=== PATIENT | male | born 1980 | race Caucasian/White ===

== ENCOUNTER 2020-04-22 08:19 | Emergency (ER) | payer OTHER, SELFPAY ==
[2020-04-22 08:37] VITALS: BP 126/90; PULSE 106; RESP 16; TEMP 36.8; O2SAT 96
--- NOTE | 2020-04-22 08:51 | ED.NAVMDI ---
HPI - Nausea/Vomiting/Diarrhea General Chief complaint: Nausea/Vomiting/Diarrhea Stated complaint: Stomach Pain Time Seen by Provider: 04/22/20 08:37 Source: patient and RN notes reviewed Mode of arrival: ambulatory Limitations: no limitations History of Present Illness HPI Narrative: Patient presents today complaining of watery diarrhea, chills, lower abdominal cramping, nasal congestion since yesterday. Patient states he has had at least 6 diarrhea stools since last night. Denies fever, sweats, rhinorrhea, cough, sore throat, headache, loss of taste or smell. Eating and drinking normally. Denies sick exposures. He has tried no [id number] interventions prior to arrival. States he feels like he has the stomach flu. MD elicited complaint: diarrhea Related Data Allergies Allergy/AdvReac Type Severity Reaction Status Date / Time No Known Allergies Allergy Unverified 11/29/19 15:53 Review of Systems Review of Systems: Narrative: CONSTITUTIONAL: Denies body aches, fever, or sweats. + Chills EYES: Denies visual changes, redness, or discharge. ENT: Denies rhinorrhea, sore throat, or otalgia. + Congestion CARDIOVASCULAR: Denies chest pain, palpitations, or edema. RESPIRATORY: Denies cough or dyspnea. GASTROINTESTINAL: Denies abdominal pain, nausea, vomiting. + Lower abdominal cramping, diarrhea GENITOURINARY: Denies dysuria or hematuria. SKIN: Denies rash, itching, or wounds. MUSCULOSKELETAL: Denies back pain, joint pain, or myalgia. NEUROLOGIC: Denies headache, numbness, tingling, or weakness. PSYCH: Denies depression or anxiety. PMFSH Past Medical History Medical History Mixed hyperlipidemia Social History Social History Smoking status: Never smoker Alcohol intake: current Drinks per week: 20 Substance use: never Comments At time of signature, I have reviewed and agree with nursing past medical, surgical, social and family history unless otherwise noted. Please see nursing chart for further information. There is no relevant family history pertinent to the presenting complaint Exam Narrative: Exam Narrative: GENERAL: Well-appearing, well-nourished, and in no acute distress. HEAD: Normocephalic, atraumatic. EYES: EOMI. No redness or drainage. Conjunctivae normal. ENT: Mucous membranes pink and moist. Nares clear. No rhinorrhea. TMs normal bilaterally. Throat normal. Uvula midline. NECK: Normal AROM. Supple. No lymphadenopathy. CHEST: No respiratory distress. Clear to auscultation. HEART: Regular rate and rhythm. No murmur appreciated. Normal peripheral pulses. ABDOMEN: Soft, nontender, nondistended, normal active bowel sounds. MUSCULOSKELETAL: No bony tenderness. EXTREMITIES: Normal range of motion. No edema. SKIN: Warm, dry, no rash. Capillary refill normal. Normal skin turgor. NEURO: No focal deficits. Alert and oriented x3. Gait steady. PSYCH: Normal affect. No signs of depression or anxiety. Course Course Emergency Course: Due to recent exposure and symptoms, patient may have a possible COVID-19 infection. Signs and symptoms discussed with patient. Patient educated to self-isolate in a room in his/her home away from others they live with. Use mask if available. Patient was advised not to leave house for any reason ? Self-treatment discussed including Tylenol for fever, pain, or myalgia, and cough cold medications for symptoms. Patient to check temperature daily and monitor for symptoms of respiratory distress. Patient should check in daily with primary care office/system via phone/virtual platform ? Nature of the disease to cause severe respiratory distress discussed with the patient. If emergent care is needed, instructed to notify EMS or primary care office/system that he/she may have COVID-19 to allow for proper preparation of PPE and isolation measures
== END 2020-04-22 09:25 | disposition home or self-care (01) ==
PROVIDERS: Emergency Provider Nurse Practitioner; PCP Family Medicine
DX: B34.9 Viral infection, unspecified (principal); Z20.822 Contact with and (suspected) exposure to COVID-19; E78.2 Mixed hyperlipidemia; I10 Essential (primary) hypertension
CPT/HCPCS: 87426; 99213; C9803; G0463

== ENCOUNTER 2022-09-23 00:30 | Emergency (ER) | payer OTHER, SELFPAY ==
--- NOTE | ~2022-09-23 | CT_ITS ---
CT of the Abdomen and Pelvis: Indication: Abdominal pain Technique: 2.5 mm axial scans were obtained through the abdomen and pelvis following intravenous adm inistration of 100 cc of Omnipaque 350. Dose reduction technique was used on this scan by utilizing a utomated exposure control and iterative reconstruction technique. The dose-length product (DLP) was 1 267.98 mGy-cm. Findings: Scans through the lung bases are unremarkable. There is diffuse fatty infiltration of the liver. There is a 4.4 x 4.5 cm mass in right hepatic lobe with irregular peripheral enhancement (axial image 33). The spleen, pancreas, gallbladder, adrenals a nd kidneys are within normal limits. No evidence of aortic aneurysm. No lymphadenopathy. No bowel obstruction or bowel wall thickening. There is no evidence to suggest acute appendicitis. Images through the pelvis were performed. Urinary bladder unremarkable. Prostate gland and seminal ve sicles are unremarkable. No ascites. Impression: 4.5 x 4.4 cm right hepatic lobe mass. This likely represents hemangioma, though this exam is not defi nitive given the extent of enhancement during the phase imaging. Recommend follow-up pre and postcont rast hepatic MR to more definitively confirm hemangioma. Background diffuse fatty infiltration of the liver. Reviewed, dictated and finalized at location . Impression: 4.5 x 4.4 cm right hepatic lobe mass. This likely represents hemangioma, though this exam is not definitive given the extent of enhancement during the phase i maging. Recommend follow-up pre and postcontrast hepatic MR to more definitivel y confirm hemangioma. Background diffuse fatty infiltration of the liver.
[2022-09-23 00:33] VITALS: PULSE 102; RESP 18; TEMP 36.6; O2SAT 99
[2022-09-23 00:58] LABS: Basophils Absolute Auto 0.1 K/mm3 (0.0-0.1); Basophils Percent Auto 0.6 % (0.2-1.2); Eosinophils Absolute Auto 0.1 K/mm3 (0-0.3); Hematocrit 45.2 % (42.0-52.0); Hemoglobin 15.4 g/dL (14.0-18.0); Immature Granulocyte Absolute 0.03 K/mm3 (0.00-0.031); Immature Granulocyte Percent A 0.3 % (0-0.5); Lymphocytes Absolute Auto 2.74 K/mm3 (0.9-3.2); Mean Corpuscular HGB Conc 34.1 g/dl (32-36); Mean Corpuscular Hemoglobin 28.4 pg (26-34); Mean Corpuscular Volume 83.2 fl (80-100); Mean Platelet Volume 9.5 fl (7.4-10.4); Monocytes Absolute Auto 1.2 K/mm3 (0.1-0.6); Monocytes Percent Auto 11.6 % (2.6-8.5); Neutrophils Absolute Auto 6.4 K/mm3 (1.3-6.7); Neutrophils Percent Auto 60.5 % (45.5-73.1); Platelet Count Result 337 k/mm3 (150-375); Red Blood Count 5.43 M/mm3 (4.6-6.20); Red Cell Distribution Width 13.4 % (11.5-14.5); White Blood Count 10.5 K/mm3 (4.5-10.0)
[2022-09-23 01:17] LABS: Appearance Urine Clear (Clear); Bacteria Urine None Seen /hpf; Bilirubin Urine Negative (Negative); Blood Urine Trace (Negative); Color Urine Yellow (Yellow); Glucose Urine UA Negative (Negative); Ketones Urine Negative (Negative); Leukocyte Esterase Ur Negative LEU/UL (Negative); Nitrate Urine Negative (Negative); Non Pathogenic Casts 0-2; Protein Urine Negative (Negative); RBC Urine 0-2 /hpf (0-2); Specific Grav Ur 1.023 (1.001-1.035); Squamous Epithelial Cell Urine None seen /hpf (Few); Urobilinogen Urine 0.2 mg/dL (<2.0); WBC Urine 0-5 /hpf; pH Urine 5.5 (5.0-9.0)
[2022-09-23 01:25] LABS: Add Urine Microscopic? YES
--- NOTE | 2022-09-23 01:55 | ED.ABDPAIN ---
HPI - Abdominal Pain General Chief Complaint: Abdominal Pain <KARON Cam Last Filed: 09/23/22 03:44> Stated Complaint: abd pain <KARON Cam Last Filed: 09/23/22 03:44> Time Seen by Provider: 09/23/22 01:01 <KARON Cam Last Filed: 09/23/22 03:44> Source: patient <KARON Cam Last Filed: 09/23/22 03:44> Mode of arrival: ambulatory <KARON Cam Last Filed: 09/23/22 03:44> Limitations: no limitations <KARON Cam Last Filed: 09/23/22 03:44> History of Present Illness HPI narrative: Patient is 42-year-old male who presents to the ED with report of right upper quadrant abdominal pain. Patient reports the pain began after eating lunch at [facility] on Tuesday. Pain has been constant since then. He has not taken anything for pain. No significant radiation of pain. Patient denies ever really having pain like this before. Denies any nausea, vomiting, constipation. He did have an episode of diarrhea earlier this week. Denies rectal bleeding or melena. Denies urinary symptoms. Denies fevers. <KARON Cam Last Filed: 09/23/22 03:44> Related Data Allergies/Adverse Reactions: Allergies Allergy/AdvReac Type Severity Reaction Status Date / Time No Known Allergies Allergy Unverified 09/20/22 16:22 <KARON Cam Last Filed: 09/23/22 03:44> Review of Systems Review of Systems: CONSTITUTIONAL: Denies fever, chills, or sweats. CARDIOVASCULAR: Denies chest pain. RESPIRATORY: Denies dyspnea. GASTROINTESTINAL: See HPI. GENITOURINARY: Denies dysuria or hematuria. SKIN: Denies rash or itching. MUSCULOSKELETAL: Denies back pain, joint pain, or myalgia. <KARON Cam Last Filed: 09/23/22 03:44> All systems reviewed & are unremarkable except as noted in HPI and below <Sariah Caraballo PA-C - Last Filed: 09/23/22 03:44> [facility] Past Medical History Medical History: Medical History Mixed hyperlipidemia <Sariah Caraballo PA-C - Last Filed: 09/23/22 03:44> Social History Social History: Social History Smoking status: Never smoker Alcohol intake: current Drinks per week: 20 Substance use: never Living arrangements: with family Occupation/Education: occupation Gender identity (if verbalized by the patient): Male Sexual Orientation (if Verbalized by the Patient): Straight or Heterosexual <Sariah Caraballo PA-C - Last Filed: 09/23/22 03:44> Exam Narrative: GENERAL: Well appearing, obese with BMI of 36.6, non-toxic, in no acute distress. HEAD: Normocephalic, atraumatic. NECK: Supple. No adenopathy, no masses. RESPIRATORY: Airway patent, respirations nonlabored. Clear to auscultation bilaterally, no rales, rhonchi, wheezing. CARDIOVASCULAR: Regular rate and rhythm without murmurs, rubs, or gallops. Radial pulses 2+ and equal bilaterally. ABDOMINAL: Soft, focal tenderness in right upper quadrant, nondistended, no hepatosplenomegaly. Normoactive BS. MUSCULOSKELETAL: Moves all extremities. Strength/ROM intact without gross deformities. SKIN: Warm, dry, normal color. No rashes. NEURO: A&O X3. Speech clear. Cranial nerves II-XII grossly intact. Steady gait. No ataxic movements. PSYCHIATRIC: Appropriate mood and affect. Normal interaction. <Sariah Caraballo PA-C - Last Filed: 09/23/22 03:44> Course [employer]/PA Physician Supervision This is a was performed by both a physician and an APC. I performed all aspects of the MDM as documented w/ the following additions: 42-year-old gentleman presenting with right upper quadrant pain. Workup was significant for fatty infiltration of the liver as well as a liver hemangioma. No evidence of cholecystitis or appendicitis.
[2022-09-23 01:56] LABS: Alanine Aminotransferase 71 U/L (6-50); Albumin Level 4.7 g/dL (3.5-5.1); Alkaline Phosphatase 69 U/L (38-126); Anion Gap 9 mmol/L (8-16); Aspartate Amino Transferase 44 U/L (17-59); Bilirubin,Total 0.6 mg/dL (0.2-1.3); Blood Urea Nitrogen 19 mg/dL (9-20); Calcium 9.2 mg/dL (8.4-10.2); Carbon Dioxide 31 mmol/L (22-30); Chloride 97 mmol/L (98-107); Estimated CRCL calculation 108 ml/min; Estimated Glomerular Filt Rate > 60; Glucose 162 mg/dL (65-110); Lipase 83 U/L (23-300); Potassium 2.9 mmol/L (3.4-5.0); Sodium 137 mmol/L (137-145)
[2022-09-23] MEDS: POTASSIUM CHLORIDE 20 MEQ TABLET 40 MEQ PO ×2 (02:29→04:20)
[2022-09-23 02:57] VITALS: BP 138/83; PULSE 81; RESP 16; O2SAT 99
[2022-09-23 06:22] VITALS: BP 130/78; PULSE 81; RESP 18; O2SAT 98
== END 2022-09-23 06:24 | disposition home or self-care (01) ==
PROVIDERS: Emergency Medicine; Emergency Provider Physician Assistant; PCP Family Medicine
DX: K80.50 Calculus of bile duct without cholangitis or cholecystitis without obstruction (principal); E87.6 Hypokalemia; E78.2 Mixed hyperlipidemia; K76.0 Fatty (change of) liver, not elsewhere classified; R16.0 Hepatomegaly, not elsewhere classified
CPT/HCPCS: 36415; 74177; 80053; 81001; 83690; 85025; 99284; A9270; Q9967

== ENCOUNTER 2022-10-25 15:21 | Outpatient (CLI) | payer OTHER, SELFPAY ==
--- NOTE | ~2022-10-25 | MR_ITS ---
EXAMINATION: MR abdomen wo/w con DATE: 10/25/2022 16:37 INDICATION: Liver lesion on prior CT. TECHNIQUE: Magnetic resonance imaging (MRI) of the abdomen was performed without and with 20 mL Multi evgeny intravenous contrast. Sequences included coronal T2-weighted SS-FSE, coronal and axial FS 2D-F IESTA, axial STIR FSE, axial T2-weighted SS-FSE, axial T2-weighted FS SS-FSE, axial diffusion-weighte d SE, axial dual-echo T1-weighted FSPGR, and axial and coronal T1-weighted LAVA. Postcontrast axial T 1-weighted LAVA images were obtained in a time course. Postcontrast coronal T1-weighted LAVA images w ere obtained. COMPARISON: CT dated 09/23/2022 FINDINGS: Heart size is normal. No pericardial or pleural effusion. Prominent diffuse hepatic steatosis with si gnal dropout on opposed phase imaging. 4.4 x 4.2 cm cavernous hemangioma in the right hepatic lobe wi th characteristic T2 hyperintensity with lobular margins and peripheral discontiguous puddling of con trast isointense to the aorta which fills in on delayed imaging. There is an additional 7 mm T2 hyper intense likely flash filling hemangioma in the segment 3 of the left hepatic lobe with enhancement wh ich prominent enhancement which persists through 10 minute delayed images. Gallbladder, spleen, pancr eas, right kidney and right adrenal gland are normal. 8 mm macroscopic fat containing left adrenal my elolipoma. 4-5 mm T2 hyperintense nonenhancing left renal cyst. Visualized portion of the bowels incl uding the appendix are normal. No pathologically enlarged abdominal lymphadenopathy. Visualized bones are unremarkable with normal marrow signal throughout. IMPRESSION: 1. Lesion of concern corresponds to a 4.4 cm cavernous hemangioma in the right hepatic lobe with an a dditional 7 mm flash filling hemangioma and segment 3 of the left hepatic lobe. 2. Diffuse hepatic steatosis. 3. 8 mm left adrenal myelolipoma. Reviewed, dictated and finalized at location A. IMPRESSION: 1. Lesion of concern corresponds to a 4.4 cm cavernous hemangioma in the right hepatic lobe with an additional 7 mm flash filling hemangioma and segment 3 of the left hepatic lobe. 2. Diffuse hepatic steatosis. 3. 8 mm left adrenal myelolipoma.
== END 2022-10-25 15:22 ==
LOC: MICIMG 15:23
PROVIDERS: PCP Family Medicine; Visit Provider Family Medicine
DX: R93.89 Abnormal findings on diagnostic imaging of other specified body structures (principal); K76.0 Fatty (change of) liver, not elsewhere classified; D35.02 Benign neoplasm of left adrenal gland
CPT/HCPCS: 74183; A9577